=== PATIENT | male | born 1980 | race Caucasian/White ===

== ENCOUNTER 2020-05-20 19:10 | Emergency (ER) | payer BC, OTHER ==
[2020-05-20] MEDS ORDERED: ONDANSETRON 4 MG/2 ML (SDV) Z0FRAN IV STA (19:39)
[2020-05-20] MEDS ORDERED: KETOROLAC 30 MG/ML VIAL IVP STA (19:39)
--- NOTE | 2020-05-20 19:44 | ED General ---
General Chief Complaint: General Problems/Pain Stated Complaint: COVID19+,CHEST TIGHTNESS,NAUSEA/VOMITING,DIZZY Source of Information: Patient History of Present Illness Date Seen by Provider: May 20, 2020 Time Seen by Provider: 19:38 Initial Comments 40-year-old male presenting with complaints of dizziness and lightheadedness. He was diagnosed with COVID 19 on May 18. Since then he has been having increasing dizziness and lightheadedness. He has some nausea due to harvey estion and drainage. He has been trying to drink more fluids. Especially with standing he feels dizzy and lightheaded. He states last night when getting out of the shower he almost passed out. He denies any other health problems and has not been sick like this in the past. He is not taking any medications or prescriptions. Allergies and Home Medications Allergies Coded Allergies: No Known Drug Allergies (Unverified , 05/20/20) Home Medications Prednisone 20 Mg Tab, 40 MG PO DAILY Prescribed by: VILMA SEAY on 05/20/202202 Patient Home Medication List Home Medication List Reviewed: Yes Review of Systems Review of Systems Constitutional: see HPI, chills, dizziness, fever, malaise EENTM: nose congestion Respiratory: cough, short of breath Cardiovascular: chest pain (tightness) Gastrointestinal: nausea (due to congestion and drainage) Genitourinary: no symptoms reported Musculoskeletal: other (generalized muscle aches and pains) Skin: no symptoms reported Psychiatric/Neurological: Weakness (general weakness) Past Gehljty-Phcxgx-Wgxfyd Hx Past Med/Social Hx: Reviewed Nursing Past Med/Soc Hx Patient Social History Alcohol Use: Denies Use Recreational Drug Use: No Recent Foreign Travel: No Contact w/Someone Who Travel: No Recent Hopitalizations: No Physical Abuse: No Sexual Abuse: No Past Medical History Surgeries: No Respiratory: No Cardiac: No Neurological: No Genitourinary: No Gastrointestinal: No Musculoskeletal: No Endocrine: No HEENT: No Cancer: No Psychosocial: No Integumentary: No Blood Disorders: No Physical Exam Vital Signs Vital Signs - First Documented 05/20/20 19:20 Temp 36.5 Pulse 86 Resp 16 B/P (MAP) 162/97 (118) Pulse Ox 96 O2 Delivery Room Air Capillary Refill : Height, Weight, BMI Height: '" Weight: lbs. oz. kg; BMI Method: General Appearance: WD/WN, Anxious HEENT: PERRL/EOMI; No Moist Mucous Membranes (dry mucous membranes) Neck: Full Range of Motion, Non Tender, Supple Respiratory: Chest Non Tender, No Accessory Muscle Use, No Respiratory Distress, Decreased Breath Sounds Cardiovascular: Regular Rate, Rhythm, Normal Peripheral Pulses Gastrointestinal: Normal Bowel Sounds, No Pulsatile Mass, Non Tender, Soft Rectal: Deferred Extremity: Normal Capillary Refill, No Pedal Edema Neurologic/Psychiatric: Alert, Oriented x3, No Motor/Sensory Deficits, quality process lead II- XII Norm as Tested Skin: Normal Color, Warm/Dry; No Rash Progress/Results/Core Measures Suspected Sepsis SIRS Temperature: Pulse: Respiratory Rate: Laboratory Tests 05/20/20 19:40: White Blood Count 3.7L Blood Pressure / Mean: Laboratory Tests 05/20/20 19:40: Creatinine 0.93, INR Comment 1.0, Platelet Count 121L, Total Bilirubin 0.3 Results/Orders Lab Results Laboratory Tests Test 05/20/20 19:40 05/20/20 20:40 Range/Units White Blood Count 3.7 L 4.3-11.0 10^3/uL Red Blood Count 5.36 4.35-5.85 10^6/uL Hemoglobin 16.2 13.3-17.7 G/DL Hematocrit 47 40-54 % Mean Corpuscular Volume 88 80-99 FL Mean Corpuscular Hemoglobin 30 25-34 PG Mean Corpuscular Hemoglobin Concent 34 32-36 G/DL Red Cell Distribution Width 12.0 10.0-14.5 % Platelet Count 121 L 130-400 10^3/uL Mean Platelet Volume 10.4 7.4-10.4 FL Immature Granulocyte % (Auto) 0 % Neutrophils (%) (Auto) 58 42-75 % Lymphocytes (%) (Auto) 32 12-44 % Monocytes (%) (Auto) 8 0-12 % Eosinophils (%) (Auto) 2 0-10 % Basophils (%) (Auto) 0 0-10 % Neutrophils # (Auto) 2.1 1.8-7.8 X 10^3 Lymphocytes # (Auto) 1.2 1.0-4.0 X 10^3 Monocytes # (Auto) 0.3 0.0-1.0 X 10^3 Eosinophils # (Auto) 0.1 0.0-0.3 10^3/uL Basophils # (Auto) 0.0 0.0-0.1 10^3/uL Immature Granulocyte # (Auto) 0.0 0.0-0.1 10^3/uL Prothrombin Time 13.1 12.2-14.7 SEC INR Comment 1.0 0.8-1.4 Activated Partial Thromboplast Time 29 24-35 SEC Sodium Level 139 135-145 MMOL/L Potassium Level 3.5 L 3.6-5.0 MMOL/L Chloride Level 104 98-107 MMOL/L Carbon Dioxide Level 24 21-32 MMOL/L Anion Gap 11 5-14 MMOL/L Blood Urea Nitrogen 14 7-18 MG/DL Creatinine 0.93 0.60-1.30 MG/DL Estimat Glomerular Filtration Rate > 60 BUN/Creatinine Ratio 15 Glucose Level 165 H 70-105 MG/DL Calcium Level 9.1 8.5-10.1 MG/DL Corrected Calcium 8.9 8.5-10.1 MG/DL Total Bilirubin 0.3 0.1-1.0 MG/DL Aspartate Amino Transf (AST/SGOT) 33 5-34 U/L Alanine Aminotransferase (ALT/SGPT) 63 H 0-55 U/L Alkaline Phosphatase 49 40-136 U/L Troponin I < 0.30 <0.30 NG/ML C-Reactive Protein 0.13 <0.50 MG/DL Total Protein 7.3 6.4-8.2 GM/DL Albumin 4.3 3.2-4.5 GM/DL Urine Color YELLOW Urine Clarity CLEAR Urine pH 6.0 5-9 Urine Specific Pillager 1.025 H 1.016-1.022 Urine Protein NEGATIVE NEGATIVE Urine Glucose (UA) NEGATIVE NEGATIVE Urine Ketones NEGATIVE NEGATIVE Urine Nitrite NEGATIVE NEGATIVE Urine Bilirubin NEGATIVE NEGATIVE Urine Urobilinogen 0.2 < = 1.0 MG/DL Urine Leukocyte Esterase NEGATIVE NEGATIVE Urine RBC (Auto) NEGATIVE NEGATIVE Urine RBC NONE /HPF Urine WBC NONE /HPF Urine Squamous Epithelial Cells RARE /HPF Urine Crystals NONE /LPF Urine Bacteria NONE /HPF Urine Casts NONE /LPF Urine Mucus NEGATIVE /LPF Urine Culture Indicated NO My Orders Orders - VILMA SEAY MD Monitor-Rhythm Ecg Trace Only (05/20/20 19:39) Cbc With Automated Diff (05/20/20 19:39) Comprehensive Metabolic Panel (05/20/20 19:39) Crp Fs (05/20/20 19:39) Troponin I Fs (05/20/20 19:39) Lactic Acid Analyzer (05/20/20 19:39) Protime With Inr (05/20/20 19:39) Partial Thromboplastin Time (05/20/20 19:39) Ekg Tracing (05/20/20 19:39) Ns Iv 1000 Ml (Sodium Chloride 0.9%) (05/20/20 19:45) Ondansetron Injection (Zofran Injectio (05/20/20 19:39) Chest 1 View Ap/Pa Only (05/20/20 19:39) Ketorolac Injection (Toradol Injection) (05/20/20 19:39) Ua Culture If Indicated (05/20/20 20:08) Ed Iv/Invasive Line Start (05/20/20 20:10) Dexamethasone Injection (Decadron Inje (05/20/20 21:42) Orthostatic Vital Signs (Adult (05/20/20 21:42) Ns Iv 1000 Ml (Sodium Chloride 0.9%) (05/20/20 21:59) Vital Signs/I&O 05/20/20 05/20/20 05/20/20 19:20 21:54 22:35 Temp 36.5 Pulse 86 78 73 92 95 Resp 16 16 B/P (MAP) 162/97 (118) 168/95 (119) 156/78 167/95 (119) 163/90 (114) Pulse Ox 96 98 O2 Delivery Room Air Room Air Capillary Refill : Progress Note #1: Progress Note check basic labs as well as chest x-ray and lactic acid. Give IV fluids for hydration, Toradol for generalized pains, Zofran for nausea Progress Note #2: Progress Note labs show mild drop in the white blood cell count 3.7 and platelets at 121 which could go along with a viral infection. His chemistry did not show any acute significant abnormality. His CXR on my review had slight increase of patchy areas in lower lungs consistent with viral infection. No effusion or cardiomegaly. UA had specific gravity 1.025 even after getting IVF and drinking water. His symptoms seem to go with dehydration and viral syndrome. Encourage fluids and follow up with clinic. Will give a dose of decadron and see what his orthost atic vitals are like to see if he needs additional fluids here in ED or if he can go home and drink. Progress Note #3: Progress Note pt had symptomatic dizziness with orthostatic vital signs so given 2nd L of NS prior to discharge home. Send with script for prednisone as well. Advised to keep pushing fluids and treat fever. He will feel bad but if things get worse then return or go to clinic for recheck. ECG Initial ECG Impression Date: May 20, 2020 Initial ECG Impression Time: 19:28 Initial ECG Rate: 81 Initial ECG Rhythm: Normal Sinus Comment sinus rhythm with a heart rate of 81 bpm. VT interval 188 ms. QT interval 382 ms with a QTc interval 444 ms. There is no acute ST elevation. There is no prior tracing available for comparison. Diagnostic Imaging Diagonstic Imaging: Xray Plain Films/CT/US/NM/MRI: chest Comments On my review of his 1 view CXR he has Increased patchy opacities in lung bases right greater than left. this would be consistent with his viral infection. No effusion or cardiomegaly. Radiology read out as no acute process. NAME: MAIKEL MOREL [facility] REC#: [id number] PT STATUS: REG ER : 1980 PHYSICIAN: VILMA SEAY MD ADMIT DATE: 05/20/20/ER FS Draft Date of Exam:05/20/20 CHEST 1 VIEW AP/PA ONLY INDICATION: Covid positive. Cough. EXAM: Portable chest. FINDINGS: The lungs are well-aerated and clear. Heart is not enlarged. No pneumothorax or pleural effusion. IMPRESSION: Negative portable chest. Dictated on workstation # [id number] Dict: 05/20/202151 Trans: 05/20/20 [address] [facility] [id number] Interpreted by: KASANDRA DORAN MD Electronically signed by: Reviewed: Reviewed by Me Departure Impression Primary Impression: COVID-19 virus infection Additional Impressions: Dehydration Viral syndrome Disposition: HOME, SELF-CARE Condition: Improved Departure-Patient Inst. Decision time for Depature: 22:04 Referrals: IVANIA HUNTER MD (PCP/Family) Primary Care Physician Patient Instructions: Dehydration, Adult ED, Coronavirus Disease 2019 (COVID- 19) ED, Coronavirus Disease 2019 (COVID-19) Overview Add. Discharge Instructions: Stay well hydrated and drink plenty of fluids. Try to keep your urine as light colored as possible. The steroid can help with your inflammation from fighting the virus. Check with clinic if you are not improving or having more problems/concerns All discharge instructions reviewed with patient and/or family. Voiced understa nding. Scripts Prednisone (Prednisone) 20 Mg Tab 40 MG PO DAILY for 5 Days, #10 TAB 0 Refills Prov: VILMA SEAY MD 05/20/20 VILMA SEAY MD May 20, 2020 19:44
[2020-05-20] MEDS ORDERED: NS IV 1000 ML 1,000 ML IV SCH (19:45)
[2020-05-20 19:51] LABS: HEMATOCRIT 47 % (40-54); HEMOGLOBIN 16.2 G/DL (13.3-17.7); MEAN CORPUSCULAR HEMOGLOBIN 30 PG (25-34); MEAN CORPUSCULAR HGB CONC 34 G/DL (32-36); MEAN CORPUSCULAR VOLUME 88 FL (80-99); WHITE BLOOD COUNT 3.7 10^3/uL (4.3-11.0)
[2020-05-20 19:52] LABS: BASOPHILS % (AUTO) 0 % (0-10); EOSINOPHILS # (AUTO) 0.1 10^3/uL (0.0-0.3); EOSINOPHILS % (AUTO) 2 % (0-10); LYMPHOCYTES # (AUTO) 1.2 X 10^3 (1.0-4.0); LYMPHOCYTES % (AUTO) 32 % (12-44); MEAN PLATELET VOLUME 10.4 FL (7.4-10.4); MONOCYTES # (AUTO) 0.3 X 10^3 (0.0-1.0); MONOCYTES % (AUTO) 8 % (0-12); NEUTROPHILS # (AUTO) 2.1 X 10^3 (1.8-7.8); NEUTROPHILS % (AUTO) 58 % (42-75); PLATELET COUNT 121 10^3/uL (130-400)
[2020-05-20 20:09] LABS: ALANINE AMINOTRANSFERASE 63 U/L (0-55); ALKALINE PHOSPHATASE 49 U/L (40-136); BILIRUBIN,TOTAL 0.3 MG/DL (0.1-1.0); BUN/CREATININE RATIO 15; CALCIUM 9.1 MG/DL (8.5-10.1); CARBON DIOXIDE 24 MMOL/L (21-32); CHLORIDE 104 MMOL/L (98-107); CREATININE SERUM 0.93 MG/DL (0.60-1.30); GFR ESTIMATED > 60; GLUCOSE 165 MG/DL (70-105); POTASSIUM 3.5 MMOL/L (3.6-5.0); SODIUM 139 MMOL/L (135-145)
[2020-05-20 20:10] LABS: ALBUMIN 4.3 GM/DL (3.2-4.5); TOTAL PROTEIN 7.3 GM/DL (6.4-8.2)
[2020-05-20 20:19] LABS: PROTHROMBIN TIME PATIENT 13.1 SEC (12.2-14.7)
[2020-05-20 20:54] LABS: BILIRUBIN,URINE NEGATIVE (NEGATIVE); CLARITY,URINE CLEAR; COLOR,URINE YELLOW; GLUCOSE, URINE (UA) NEGATIVE (NEGATIVE); KETONES,URINE NEGATIVE (NEGATIVE); LEUKOCYTE ESTERASE ,URINE NEGATIVE (NEGATIVE); NITRITE,URINE NEGATIVE (NEGATIVE); PROTEIN,URINE NEGATIVE (NEGATIVE); SQUAMOUS EPITHELIAL CELL,UR RARE /HPF
[2020-05-20 21:54] VITALS: BP_SYST 163; BP_SYST 167; BP_SYST 168; BP_DIAS 90; BP_DIAS 95
--- NOTE | 2020-05-20 21:54 | Diagnostic Imaging Report ---
INDICATION: Covid positive. Cough. EXAM: Portable chest. FINDINGS: The lungs are well-aerated and clear. Heart is not enlarged. No pneumothorax or pleural effusion. IMPRESSION: Negative portable chest. Dictated by: Dictated on workstation # [id number]
[2020-05-20] MEDS ORDERED: NS IV 1000 ML 1,000 ML IV STA (21:59)
[2020-05-20] MEDS ORDERED: PRD20T PO (22:03)
[2020-05-20 22:35] VITALS: BP 156/78
== END 2020-05-20 22:36 | disposition home or self-care (01) ==
LOC: ER FS 19:13
DX: U07.1 COVID-19 (principal); E86.0 Dehydration
CPT/HCPCS: 36415; 71045; 80053; 81000; 84484; 85025; 85610; 85730; 86141; 93005; 93041

== ENCOUNTER 2020-05-22 02:53 | Emergency (ER) | payer BC ==
[~2020-05-22] VITALS: Ht 187.9 cm; Wt 113.3 kg
[~2020-05-22 02:53] MED LIST: PRD20T PO
[2020-05-22 02:56] VITALS: BP 180/99
--- NOTE | 2020-05-22 03:20 | ED Cough/URI ---
General Chief Complaint: Respiratory Problems Stated Complaint: POS PUI Nursing Triage Note: Patient was seen in the ER last night for the same issue. Patient is Covid positive. Patient thinks he may be dehydrated. Patient also states that he has a productive cough and noticed that there was some blood in it. Sepsis Screen: No Definite Risk Source: patient Exam Limitations: no limitations History of Present Illness Date Seen by Provider: May 22, 2020 Time Seen by Provider: 03:00 Initial Comments 40 y/o male w +covid for past 1 week. Seen in this ER last night for feeling poorly and had work-up , labs and CXR and given IVF and sent home w steroids. Tonight having chest tightness. Non-smoker and no Hx of asthma Allergies and Home Medications Allergies Coded Allergies: No Known Drug Allergies (Unverified , 05/20/20) Home Medications Albuterol Sulfate 1 Puff Puff, 2 PUFF IH Q4H 1 PUFF = 90 MCG Prescribed by: GRACE GUZMAN on 05/22/20 0326 Prednisone 20 Mg Tab, 40 MG PO DAILY Prescribed by: VILMA SEAY on 05/20/202202 Patient Home Medication List Home Medication List Reviewed: Yes Review of Systems Review of Systems Constitutional: No chills, No dizziness, No fever; malaise EENTM: see HPI, no symptoms reported Respiratory: cough, short of breath; No stridor, No wheezing Cardiovascular: chest pain; No edema, No palpitations, No syncope, No vascular heart diseas Gastrointestinal: No abdominal pain, No nausea, No vomiting Musculoskeletal: muscle pain; No muscle weakness Skin: No change in color, No rash Psychiatric/Neurological: Denies Headache, Denies Numbness, Denies Paresthesia Past Fzwvofh-Qnotsy-Sdetud Hx Past Med/Social Hx: Reviewed Nursing Past Med/Soc Hx Patient Social History Alcohol Use: Denies Use Recreational Drug Use: No Smoking Status: Never a Smoker Recent Foreign Travel: No Contact w/Someone Who Travel: No Recent Infectious Disease Expo: Yes Recent Hopitalizations: No Physical Abuse: No Sexual Abuse: No Mistreated: No Fear: No Past Medical History Surgeries: No Respiratory: No Cardiac: No Neurological: No Genitourinary: No Gastrointestinal: No Musculoskeletal: No Endocrine: No HEENT: No Cancer: No Psychosocial: No Integumentary: No Blood Disorders: No Physical Exam Vital Signs - First Documented 05/22/20 02:56 Temp 36.5 Pulse 85 Resp 20 B/P (MAP) 180/99 (126) Pulse Ox 98 O2 Delivery Room Air Capillary Refill : Less Than 3 Seconds Height: '" Weight: lbs. oz. kg; 32.00 BMI Method: General Appearance: WD/WN, no apparent distress HEENT: PERRL/EOMI, normal ENT inspection Neck: non-tender, supple Respiratory: chest non-tender, lungs clear, normal breath sounds, no respir atory distress, no accessory muscle use Cardiovascular: regular rate, rhythm, no edema, no gallop, no JVD Gastrointestinal: non tender, soft Extremities: non-tender, normal inspection, no pedal edema, no calf tenderness Neurologic/Psychiatric: no motor/sensory deficits, alert, normal mood/affect, oriented x 3 Skin: normal color, warm/dry Progress/Results/Core Measures Suspected Sepsis Recent Fever Within 48 Hours: No Infection Criteria Present: Documented Infection New/Unexplained Altered Menta: No Sepsis Screen: No Definite Risk SIRS Temperature: Pulse: 85 Respiratory Rate: 20 Blood Pressure 180 /99 Mean: 126 Results/Orders My Orders Orders - GRACE GUZMAN DO Covid-19 External Lab Results (05/22/20 03:10) Vital Signs/I&O 05/22/20 02:56 Temp 36.5 Pulse 85 Resp 20 B/P (MAP) 180/99 (126) Pulse Ox 98 O2 Delivery Room Air Capillary Refill : Less Than 3 Seconds Blood Pressure Mean: 126 Departure Impression Primary Impression: COVID-19 virus infection Disposition: 01 HOME, SELF-CARE Condition: Improved Departure-Patient Inst. Decision time for Depature: 03:15 Referrals: IVANIA HUNTER MD (PCP/Family) Primary Care Physician Patient Instructions: Coronavirus Disease 2019 (COVID-19) (DC) Add. Discharge Instructions: Call Dr Hunter for questions related to follow up evaluation. Return to the ER for progression of your symptoms You are advised to take the following daily for 1 month: 1. Vitamin D 5000iu 2. Vitamin C 1000mg twice daily 3. Zinc 200mg daily 4. Aspirin 325mg daily Also, fill the prescription for Ivermectin and take as instructed.... 5 pills at once on day #1 and day #3 A prescription for an albuterol inhaler was sent to [facility], use this for shortness of air up to 2 puffs every 4 hours All discharge instructions reviewed with patient and/or family. Voiced understanding. Scripts Albuterol Sulfate (PROAIR HFA) 1 Puff Puff 2 PUFF IH Q4H for Shortness of Breath, #1 PUFF 1 Refill 1 PUFF = 90 MCG Prov: GRACE GUZMAN DO 05/22/20 GRACE GUZMAN DO May 22, 2020 03:20
[2020-05-22] MEDS ORDERED: RT-ALBUINH IH (03:26)
[2020-05-22] MEDS ORDERED: RT-ALBUTEROL/IPRATROPIUM 3 ML (DUONEB) VIAL INH ONE (03:30)
[2020-05-23] MEDS ORDERED: MECL-149 PO (15:10)
[2020-05-23] MEDS ORDERED: ALPR0.254 PO (15:10)
== END 2020-05-22 03:51 | disposition home or self-care (01) ==
LOC: EDUNIT# 02:53 → ER FS 02:56
DX: U07.1 COVID-19 (principal)
CPT/HCPCS: 99282

== ENCOUNTER 2020-05-23 13:16 | Emergency (ER) | payer BC ==
[~2020-05-23] VITALS: Ht 187.9 cm; Wt 102.2 kg
[~2020-05-23 13:16] MED LIST changes: +RT-ALBUINH IH
[2020-05-23] MEDS ORDERED: NS IV 1000 ML 1,000 ML ONE (13:26)
[2020-05-23] MEDS ORDERED: LORazepam INJ 2 MG/ML (ATIVAN) VIAL IVP STA (13:28)
[2020-05-23] MEDS ORDERED: NS IV 1000 ML 1,000 ML IV SCH (13:30)
[2020-05-23 13:38] LABS: BASOPHILS % (AUTO) 0 % (0-10); EOSINOPHILS % (AUTO) 1 % (0-10); HEMATOCRIT 47 % (40-54); HEMOGLOBIN 16.6 G/DL (13.3-17.7); LYMPHOCYTES # (AUTO) 1.6 X 10^3 (1.0-4.0); LYMPHOCYTES % (AUTO) 24 % (12-44); MEAN CORPUSCULAR HEMOGLOBIN 30 PG (25-34); MEAN CORPUSCULAR HGB CONC 35 G/DL (32-36); MEAN CORPUSCULAR VOLUME 86 FL (80-99); MEAN PLATELET VOLUME 10.1 FL (7.4-10.4); MONOCYTES # (AUTO) 0.6 X 10^3 (0.0-1.0); MONOCYTES % (AUTO) 9 % (0-12); NEUTROPHILS # (AUTO) 4.6 X 10^3 (1.8-7.8); NEUTROPHILS % (AUTO) 66 % (42-75); PLATELET COUNT 165 10^3/uL (130-400); WHITE BLOOD COUNT 6.9 10^3/uL (4.3-11.0)
--- NOTE | 2020-05-23 13:50 | ED General ---
General Chief Complaint: Abdominal/GI Problems Stated Complaint: SOB Nursing Triage Note: Pt presents to ED per POV very anxious for 3rd evaluation since diagnosis COVID 05/18/20. Pt became ill on 05/17/20 after exposure to an employee 2 days prior that also has COVID. Pt is concerned as he is dizzy and concerned for dehydration. Pt is using Zofran at home and drinking Gatorade. Pt had 1 episode diarrhea since last ED visit. Nursing Sepsis Screen: No Definite Risk Source of Information: Patient, Old Records History of Present Illness Date Seen by Provider: May 23, 2020 Time Seen by Provider: 13:28 Initial Comments 40-year-old male presenting with recurrent dizziness and concern for deh ydration. He is also very anxious about being diagnosed with COVID. he started to become ill on May 17 and has been dizzy and lightheaded since. This is his third visit to the emergency department since May 20. He is anxious and concerned about being sick. He keeps stating that he's never been sick before and feels miserable. He has had nausea but no vomiting. He has had some diarrhea intermittently over the last week. He has been drinking a lot of water in his urine has been very light in color. He states that he has not had any food or protein intake as much as just water because he was so full of drinking so much fluid. Allergies and Home Medications Allergies Coded Allergies: No Known Drug Allergies (Unverified , 05/20/20) Home Medications ALPRAZolam 0.25 Mg Tablet, 0.25 MG PO TID PRN for Anxiety/Dizziness Prescribed by: VILMA SEAY on 05/23/20 1510 Albuterol Sulfate 1 Puff Puff, 2 PUFF IH Q4H 1 PUFF = 90 MCG Prescribed by: GRACE GUZMAN on 05/22/20 0326 Meclizine HCl 25 Mg Tablet, 25 MG PO TID PRN for DIZZINESS Prescribed by: VILMA SEAY on 05/23/20 1510 Prednisone 20 Mg Tab, 40 MG PO DAILY Prescribed by: VILMA SEAY on 05/20/20 2203 Patient Home Medication List Home Medication List Reviewed: Yes Review of Systems Review of Systems Constitutional: see HPI, chills, dizziness, fever, malaise EENTM: nose congestion Respiratory: cough, short of breath Cardiovascular: No chest pain Gastrointestinal: diarrhea, nausea; No vomiting Genitourinary: no symptoms reported Musculoskeletal: other (generalized muscle aches) Skin: No rash Psychiatric/Neurological: Anxiety (worried about his health and that he is sick and not feeling better) Past Dnnxhzj-Uuwcyi-Jjlhhl Hx Past Med/Social Hx: Reviewed Nursing Past Med/Soc Hx Patient Social History Alcohol Use: Denies Use Recreational Drug Use: No Smoking Status: Never a Smoker 2nd Hand Smoke Exposure: No Recent Foreign Travel: No Contact w/Someone Who Travel: No Recent Infectious Disease Expo: No Recent Hopitalizations: No Physical Abuse: No Sexual Abuse: No Mistreated: No Fear: No Past Medical History Surgeries: No Respiratory: No Cardiac: No Neurological: No Genitourinary: No Gastrointestinal: No Musculoskeletal: No Endocrine: No HEENT: No Cancer: No Psychosocial: No Integumentary: No Blood Disorders: No Physical Exam Vital Signs Vital Signs - First Documented 05/23/20 13:20 Temp 36.1 Pulse 76 Resp 16 B/P (MAP) 151/94 (113) Pulse Ox 100 O2 Delivery Room Air Capillary Refill : Less Than 3 Seconds Height, Weight, BMI Height: '" Weight: lbs. oz. kg; 33.00 BMI Method: General Appearance: WD/WN, Anxious HEENT: PERRL/EOMI, TMs Normal, Normal ENT Inspection, Pharynx Normal Neck: Full Range of Motion, Normal Inspection, Non Tender, Supple Respiratory: Chest Non Tender, Lungs Clear, Normal Breath Sounds, No Accessory Muscle Use, No Respiratory Distress Cardiovascular: Regular Rate, Rhythm, Normal Peripheral Pulses Gastrointestinal: Normal Bowel Sounds, No Pulsatile Mass, Non Tender Extremity: Normal Capillary Refill, Normal Inspection, No Pedal Edema Neurologic/Psychiatric: Alert, Oriented x3, No Motor/Sensory Deficits, financial associate II- XII Norm as Tested Skin: Normal Color, Warm/Dry Focused Exam Lactate Level 05/23/20 13:50: Lactic Acid Level 1.73 Lactic Acid Level Progress/Results/Core Measures Suspected Sepsis Recent Fever Within 48 Hours: No Infection Criteria Present: Documented Infection New/Unexplained Altered Menta: No Sepsis Screen: No Definite Risk SIRS Temperature: Pulse: 76 Respiratory Rate: 16 Laboratory Tests 05/23/20 13:20: White Blood Count 6.9 Blood Pressure 151 /94 Mean: 113 05/23/20 13:50: Lactic Acid Level 1.73 Laboratory Tests 05/23/20 13:20: Creatinine 0.96, INR Comment 1.0, Platelet Count 165, Total Bilirubin 0.6 Results/Orders Lab Results Laboratory Tests Test 05/23/20 13:20 05/23/20 13:50 05/23/20 13:55 Range/Units White Blood Count 6.9 4.3-11.0 10^3/uL Red Blood Count 5.48 4.35-5.85 10^6/uL Hemoglobin 16.6 13.3-17.7 G/DL Hematocrit 47 40-54 % Mean Corpuscular Volume 86 80-99 FL Mean Corpuscular Hemoglobin 30 25-34 PG Mean Corpuscular Hemoglobin Concent 35 32-36 G/DL Red Cell Distribution Width 11.8 10.0-14.5 % Platelet Count 165 130-400 10^3/uL Mean Platelet Volume 10.1 7.4-10.4 FL Immature Granulocyte % (Auto) 0 % Neutrophils (%) (Auto) 66 42-75 % Lymphocytes (%) (Auto) 24 12-44 % Monocytes (%) (Auto) 9 0-12 % Eosinophils (%) (Auto) 1 0-10 % Basophils (%) (Auto) 0 0-10 % Neutrophils # (Auto) 4.6 1.8-7.8 X 10^3 Lymphocytes # (Auto) 1.6 1.0-4.0 X 10^3 Monocytes # (Auto) 0.6 0.0-1.0 X 10^3 Eosinophils # (Auto) 0.0 0.0-0.3 10^3/uL Basophils # (Auto) 0.0 0.0-0.1 10^3/uL Immature Granulocyte # (Auto) 0.0 0.0-0.1 10^3/uL Prothrombin Time 13.1 12.2-14.7 SEC INR Comment 1.0 0.8-1.4 Activated Partial Thromboplast Time 26 24-35 SEC Sodium Level 137 135-145 MMOL/L Potassium Level 3.5 L 3.6-5.0 MMOL/L Chloride Level 100 98-107 MMOL/L Carbon Dioxide Level 25 21-32 MMOL/L Anion Gap 12 5-14 MMOL/L Blood Urea Nitrogen 14 7-18 MG/DL Creatinine 0.96 0.60-1.30 MG/DL Estimat Glomerular Filtration Rate > 60 BUN/Creatinine Ratio 15 Glucose Level 105 70-105 MG/DL Calcium Level 9.8 8.5-10.1 MG/DL Corrected Calcium 8.5-10.1 MG/DL Total Bilirubin 0.6 0.1-1.0 MG/DL Aspartate Amino Transf (AST/SGOT) 43 H 5-34 U/L Alanine Aminotransferase (ALT/SGPT) 124 H 0-55 U/L Alkaline Phosphatase 52 40-136 U/L C-Reactive Protein 0.10 <0.50 MG/DL Total Protein 7.9 6.4-8.2 GM/DL Albumin 4.6 H 3.2-4.5 GM/DL Lactic Acid Level 1.73 0.50-2.00 MMOL/L Urine Color YELLOW Urine Clarity CLEAR Urine pH 7.0 5-9 Urine Specific Delmar <1.005 1.016-1.022 Urine Protein NEGATIVE NEGATIVE Urine Glucose (UA) NEGATIVE NEGATIVE Urine Ketones NEGATIVE NEGATIVE Urine Nitrite NEGATIVE NEGATIVE Urine Bilirubin NEGATIVE NEGATIVE Urine Urobilinogen 0.2 < = 1.0 MG/DL Urine Leukocyte Esterase NEGATIVE NEGATIVE Urine RBC (Auto) NEGATIVE NEGATIVE Urine RBC NONE /HPF Urine WBC NONE /HPF Urine Squamous Epithelial Cells RARE /HPF Urine Crystals NONE /LPF Urine Bacteria NONE /HPF Urine Casts NONE /LPF Urine Mucus NEGATIVE /LPF Urine Culture Indicated NO My Orders Orders - VILMA SEAY MD Monitor-Rhythm Ecg Trace Only (05/23/20 13:24) Ed Iv/Invasive Line Start (05/23/20 13:24) Cbc With Automated Diff (05/23/20 13:24) Comprehensive Metabolic Panel (05/23/20 13:24) Crp Fs (05/23/20 13:24) Lactic Acid Analyzer (05/23/20 13:24) Protime With Inr (05/23/20 13:24) Partial Thromboplastin Time (05/23/20 13:24) Ns Iv 1000 Ml (Sodium Chloride 0.9%) (05/23/20 13:30) Ua Culture If Indicated (05/23/20 13:28) Lorazepam Injection (Ativan Injection) (05/23/20 13:28) Ns Iv 1000 Ml (Sodium Chloride 0.9%) (05/23/20 13:26) Ct Head/Maxillofacial Wo (05/23/20 13:47) Vital Signs/I&O 05/23/20 05/23/20 13:20 15:22 Temp 36.1 36.2 Pulse 76 68 Resp 16 18 B/P (MAP) 151/94 (113) 142/84 Pulse Ox 100 96 O2 Delivery Room Air Room Air Capillary Refill : Less Than 3 Seconds Blood Pressure Mean: 113 Progress Note #1: Progress Note with patient continuing to complain about dizziness worse with changing positions will give IV fluids and recheck labs. Will also do a CT scan of his head and sinuses to see if there is any signs of sinusitis or acute intracranial process it was causing him to be more dizzy. He also seems anxious so will give a milligram of Ativan to help with nausea and anxiety and see if that maybe helps in addition to the fluids. Progress Note #2: Progress Note Labs stable without acute significant abnormality for his symptoms. His CBC is stable without elevation of his white blood cell count. His chemistry panel was also stable with only mild elevation of his ALT and AST. His CRP was normal at 0.1. His lactic acid was not elevated. His CT scan did not demonstrate any acute intracranial process or sinus disease. will reassure pt again and advise him to continue with electrolyte drinks, nausea medicine and anxiety medicine at home prescribed meclizine and xanax for him to try in addition to zofran he got from Dr. Hunter today. Diagnostic Imaging Diagonstic Imaging: CT Plain Films/CT/US/NM/MRI: facial bones, head Comments NAME: [facility]IK[facility] MOREL [facility] REC#: [id number] PT STATUS: REG ER : 1980 PHYSICIAN: VILMA SEAY MD ADMIT DATE: 05/23/20/ER FS Draft Date of Exam:05/23/20 CT HEAD/MAXILLOFACIAL WO PROCEDURE: CT head and maxillofacial without contrast. TECHNIQUE: Multiple contiguous axial images were obtained through the head and facial bones without the use of intravenous contrast. Auto Exposure Controls were utilized during the CT exam to meet ALARA standards for radiation dose reduction. INDICATION: Dizziness and lightheadedness. FINDINGS: CT head: Ventricles and sulci are within normal limits. No sulcal effacement or midline shift is identified. No acute intra-axial or extra-axial hemorrhage is detected. Cisterns are patent. Visualized paranasal sinuses are clear. IMPRESSION: No acute intracranial process is detected. CT maxillofacial: Maxillary sinuses are clear. Ethmoid air cells and sphenoid sinus are clear. Frontal sinus is clear. No mucosal thickening is seen. Ostiomeatal complex are patent bilaterally. Nasal septum is midline. IMPRESSION: No evidence of sinusitis. Dictated on workstation # [id number] Dict: 05/23/20 1421 Trans: 05/23/20 1429 [facility] [id number] Interpreted by: DARÍO PIERSON MD Electronically signed by: Departure Impression Primary Impression: Dizziness Additional Impressions: COVID-19 virus infection Viral syndrome Anxiety about health Disposition: HOME, SELF-CARE Condition: Stable Departure-Patient Inst. Decision time for Depature: 15:11 Referrals: IVANIA HUNTER MD (PCP/Family) Primary Care Physician Patient Instructions: Dizziness, Adult ED, Coronavirus Disease 2019 (COVID-19) ED, Anxiety, Adult ED Add. Discharge Instructions: use the nausea medicine from Dr. Hunter to help keep your stomach settled so you can eat and drink better. You could also try taking low dose medicine for anxiety to see if that helps with some of the dizziness. Meclizine (Antivert) is another medicine that may help with some of your dizziness. Continue to drink fluids and make sure you are drinking electrolyte drinks in equal portions with water. All discharge instructions reviewed with patient and/or family. Voiced understanding. Scripts ALPRAZolam (ALPRAZolam) 0.25 Mg Tablet 0.25 MG PO TID PRN for Anxiety/Dizziness for 7 Days, #21 TAB 0 Refills Prov: VILMA SEAY MD 05/23/20 Meclizine HCl (Meclizine HCl) 25 Mg Tablet 25 MG PO TID PRN for DIZZINESS for 10 Days, #30 TAB 0 Refills Prov: VILMA SEAY MD 05/23/20 VILMA SEAY MD May 23, 2020 13:50
[2020-05-23 13:54] LABS: PROTHROMBIN TIME PATIENT 13.1 SEC (12.2-14.7)
[2020-05-23 13:59] LABS: CARBON DIOXIDE 25 MMOL/L (21-32); CHLORIDE 100 MMOL/L (98-107); POTASSIUM 3.5 MMOL/L (3.6-5.0); SODIUM 137 MMOL/L (135-145)
[2020-05-23 14:00] LABS: ALANINE AMINOTRANSFERASE 124 U/L (0-55); ALBUMIN 4.6 GM/DL (3.2-4.5); ALKALINE PHOSPHATASE 52 U/L (40-136); BILIRUBIN,TOTAL 0.6 MG/DL (0.1-1.0); BUN/CREATININE RATIO 15; CALCIUM 9.8 MG/DL (8.5-10.1); CREATININE SERUM 0.96 MG/DL (0.60-1.30); GFR ESTIMATED > 60; GLUCOSE 105 MG/DL (70-105); TOTAL PROTEIN 7.9 GM/DL (6.4-8.2)
--- NOTE | 2020-05-23 14:29 | Diagnostic Imaging Report ---
PROCEDURE: CT head and maxillofacial without contrast. TECHNIQUE: Multiple contiguous axial images were obtained through the head and facial bones without the use of intravenous contrast. Auto Exposure Controls were utilized during the CT exam to meet ALARA standards for radiation dose reduction. INDICATION: Dizziness and lightheadedness. FINDINGS: CT head: Ventricles and sulci are within normal limits. No sulcal effacement or midline shift is identified. No acute intra-axial or extra-axial hemorrhage is detected. Cisterns are patent. Visualized paranasal sinuses are clear. IMPRESSION: No acute intracranial process is detected. CT maxillofacial: Maxillary sinuses are clear. Ethmoid air cells and sphenoid sinus are clear. Frontal sinus is clear. No mucosal thickening is seen. Ostiomeatal complex are patent bilaterally. Nasal septum is midline. IMPRESSION: No evidence of sinusitis. Dictated by: Dictated on workstation # [id number]
[2020-05-23 14:43] LABS: BILIRUBIN,URINE NEGATIVE (NEGATIVE); CLARITY,URINE CLEAR; COLOR,URINE YELLOW; GLUCOSE, URINE (UA) NEGATIVE (NEGATIVE); KETONES,URINE NEGATIVE (NEGATIVE); LEUKOCYTE ESTERASE ,URINE NEGATIVE (NEGATIVE); NITRITE,URINE NEGATIVE (NEGATIVE); PROTEIN,URINE NEGATIVE (NEGATIVE)
[2020-05-23 14:44] LABS: SQUAMOUS EPITHELIAL CELL,UR RARE /HPF
[2020-05-23] MEDS ORDERED: MECL-149 PO (15:10)
[2020-05-23] MEDS ORDERED: ALPR0.254 PO (15:10)
[2020-05-23 15:22] VITALS: BP 142/84
--- NOTE | 2020-05-23 16:00 | NUR ---
Patient discharged from ED at this time after extensive time spent explaining the negative work up results and reassurance given. Pt remains very anxious and is explaining the recommended scripts he is providing with the purpose and request for patient to try these and follow up with PCP Dr Meyer. Pt's was called and updated also.
== END 2020-05-23 16:00 | disposition home or self-care (01) ==
LOC: EDUNIT# 13:16 → ER FS 13:17
DX: U07.1 COVID-19 (principal); R42 Dizziness and giddiness; F41.9 Anxiety disorder, unspecified
CPT/HCPCS: 36415; 70450; 70486; 80053; 81000; 83605; 85025; 85610; 85730; 86141; 93041

== ENCOUNTER → 2020-07-08 | Outpatient (CLI) | payer BC ==
[~2020-07-08] MED LIST changes: +ALPR0.254 PO; +MECL-149 PO
--- NOTE | 2020-07-08 10:57 | Diagnostic Imaging Report ---
INDICATION: Left knee pain. COMPARISON: None. FINDINGS: 3 views of the left knee joint demonstrate no acute fracture or dislocation. No focal osseous lesions are seen. No significant joint effusion is seen. The surrounding soft tissue structures are unremarkable. There are no radiopaque foreign bodies. IMPRESSION: 1. No acute fractures or dislocations of the left knee joint. Dictated by: Dictated on workstation # [id number]
== END ==
LOC: RAD FS 09:33
PROVIDERS: ATTEND Nurse Practitioner
DX: M25.562 Pain in left knee (principal)
CPT/HCPCS: 73562

== ENCOUNTER → 2020-08-13 | Outpatient (CLI) | payer BC ==
--- NOTE | 2020-08-13 10:20 | Diagnostic Imaging Report ---
INDICATION: Pain FINDINGS: 3 view right hand showed no fracture, dislocation or retained opaque foreign body. No abnormal periosteal reaction. The alignment normal. IMPRESSION: Negative Dictated by: Dictated on workstation # [id number]
== END ==
LOC: RAD FS 09:32
PROVIDERS: ATTEND Nurse Practitioner
DX: M79.641 Pain in right hand (principal)
CPT/HCPCS: 73130

== ENCOUNTER → 2020-09-25 | Outpatient (CLI) | payer BC ==
[~2020-09-25] MED LIST changes: +GADOBUTROL 15 MMOL/15 ML (GADAVIST) VIAL IV ONE; +HOLD METFORMIN - RECEIVED CONTRAST 20 ML VIAL IV SCH; +IOHEXOL 300 MG/ML 30 ML (OMNIPAQUE 300) VIAL IV ONE
== END ==
LOC: RAD 13:30
PROVIDERS: ATTEND Nurse Practitioner
DX: S43.431A Superior glenoid labrum lesion of right shoulder, initial encounter (principal); M75.41 Impingement syndrome of right shoulder; X58.XXXA Exposure to other specified factors, initial encounter